=== PATIENT | female | born 1975 | race Caucasian/White ===

== ENCOUNTER 2021-09-23 15:36 | Outpatient (CLI) | payer BC, SELFPAY ==
--- NOTE | 2021-09-23 15:41 | BI_ITS ---
MAMMOGRAPHY - BILATERAL SCREENING REASON FOR EXAM: Female, 46 years old. Routine annual screening examination. PERTINENT HISTORY: Non-contributory. TECHNIQUE: Digital bilateral breast tiarra (3D mammographic acquisition) in the CC and MLO projections. 2-D mediolateral oblique (MLO) and craniocaudad (CC) views of both breasts were obtained. CAD: Full Field Digital Mammography with Computer Added Detection was performed. COMPARISON: None. Baseline examination. FINDINGS: Breast Composition: The breasts are heterogeneously dense, which may obscure small masses. There is a 6.4 mm x 6 mm well-defined nodule in the upper lateral aspect of the right breast. This most likely represents a small lymph node. Correlation with ultrasound is recommended. No other significant abnormalities are identified. BI/SCRN MAMM (CAD)W/TIARRA BILAT IMPRESSION: 6.4 mm x 6 mm well-defined nodule in the upper lateral aspect of the right breast. Correlation with ultrasound is recommended. ASSESSMENT CATEGORY: BIRADS Category 0: Incomplete. Need additional imaging evaluation. A letter regarding these results will be sent to the patient by the facility within 30 days. Approximately 10% of breast cancers are not detected by mammography. A normal mammogram should not delay biopsy of a clinically suspicious abnormality. [id number] Electronically Signed: Paul Colin MD at 8:30 EST ,
== END 2021-09-23 23:59 | disposition home or self-care (01) ==
LOC: OPBI 15:39
PROVIDERS: PCP Registered Nurse; Visit Provider Registered Nurse
DX: Z12.31 Encounter for screening mammogram for malignant neoplasm of breast (principal)
CPT/HCPCS: 77063; 77067

== ENCOUNTER 2021-09-26 13:58 | Outpatient (CLI) | payer BC, SELFPAY ==
--- NOTE | 2021-09-26 14:04 | US_ITS ---
History: Breast nodule Right breast ultrasound: Findings: 6 and 4 mm cysts are noted at the 10 o'clock position of the right breast. No evidence of a solid mass. IMPRESSION: 6 and 4 mm right breast cysts. at 1523 Reported and signed by: Julio Sheridan MD Electronically Signed: Julio Sheridan MD at 15:21 EST , US/Breast Limited Unilateral
== END 2021-09-26 23:59 | disposition home or self-care (01) ==
PROVIDERS: PCP Registered Nurse; Visit Provider Registered Nurse
DX: N60.01 Solitary cyst of right breast (principal)
CPT/HCPCS: 76642

== ENCOUNTER 2022-12-08 08:00 | Day surgery (SDC) | payer BC, SELFPAY ==
--- NOTE | 2022-12-08 | COLBX_PTH ---
PATIENT: LUCAS BRYANT LOC: EN U#:[id number] AGE/SX: 47/F ROOM: RE12/08/[address]: Dr. Yvonne Lebron MD : 1975 BED: DIS: 12/08/2022 SPEC #: [id number] RECD: 12/08/22 11:16 STATUS: SHIMA REQ #: [id number] CANDIE: 12/08/22 00:[address]: Yvonne Lebron DEPT: SURGICAL PATHOLOGY RECD BY: Jabier Randolph ENTERED: 12/08/22 11:16 SP TYPE: COLON BX OTHR DR: Dr. Eric Barry MD Tissues: A - Ascending colon B - Sigmoid colon biopsy C - Rectum, NOS Procedures: Surgery Specimen Level IV HEADER OPERATION: Colonoscopy ? open access (MAC) with polypectomy and biopsies PRE-OP DIAGNOSIS: Screening TISSUE SUBMITTED: A ? Ascending colon polyp, B ? Sigmoid polyp polypectomy and biopsy x3, C ? Rectum polyp x3 MICROSCOPIC DIAGNOSIS A. Ascending colon polyp, biopsy: Fragments of hyperplastic polyp. B. Sigmoid polyp, polypectomy and biopsy: Fragments of hyperplastic polyp. C. Rectum polyp, biopsy: Fragments of hyperplastic polyp. YAQUELIN:chrissie 12/09/2022 MICROSCOPIC DESCRIPTION Slides are reviewed. GROSS DESCRIPTION A - Received in fixative is one container labeled with the patient's name and designated ascending colon polyp. The specimen consists of multiple irregular fragments of light roy soft tissue that in aggregate measure 1.2 x 0.3 x 0.1 cm. The specimen is totally submitted in one cassette. B - Received in fixative is one container labeled with the patient's name and designated sigmoid polypectomy and biopsy. The specimen consists of multiple irregular fragments of light roy soft tissue that in aggregate measure 1.0 x 0.5 x 0.2 cm. The specimen is totally submitted in one cassette. C - Received in fixative is one container labeled with the patient's name and designated rectal polyp. The specimen consists of multiple irregular fragments of light roy soft tissue that in aggregate measure 1.5 x 0.6 x 0.1 cm. The specimen is totally submitted in one cassette. / YAQUELIN:chrissie 12/08/2022 TC:1 CPT: 24524 x3
[2022-12-08 08:20] VITALS: BP 100/60; PULSE 59; RESP 16; TEMP 36.4; O2SAT 98; BMI 28.3
--- NOTE | 2022-12-08 08:27 | H&P.OPEN ---
[facility] - General General Date of Admission: 12/08/22 HPI Narrative LUCAS BRYANT, is a 47 F who presents for screening colonoscopy. Patient's mom was just diagnosed with colon cancer at age 70. Patient's maternal grandmother also had colon cancer multiple times. Patient never had colonoscopy. Patient denies any chronic abdominal pain/nausea/vomiting/reflux. Patient does have issues with constipation going go maybe once a week to every 1 to 2 weeks. [facility] Medical History (Updated 12/08/22 @ 08:[address] Yvonne Lebron MD) Alcohol use Back pain Cardiology follow-up encounter Gastric reflux History of edema History of irregular heartbeat History of stress test Injury of back Post-menopausal Restless legs Smoker Syncope Wears dentures Wears glasses Home Medications NK 10/31/22 [History Last Taken Unknown] Allergy/AdvReac Type Severity Reaction Status Date / Time No Known Allergies Allergy Verified 12/08/22 08:18 Family History (Updated 10/31/22 @ 09:26 by Annette Schuster) Mother Colon cancer Hypertension Grandmother Colon cancer Surgical History (Updated 10/31/22 @ 09:25 by Annette Schuster) History of appendectomy History of tubal ligation Hx of cholecystectomy Hx of hysterectomy Social History (Updated 10/31/22 @ 09:27 by Annette Schuster) household members: spouse and children current occupational status: employed Smoking Status: Current every day smoker tobacco type: cigarettes Past Medical/Surgical History Planned Operation Planned Operative Procedure/s: COLONOSCOPY-OA Previous Hospitalizations/Surgeries HX Hospitalizations: No Any Problems With Anesthesia: Yes (DOESN'T TAKE MUCH FOR HER) You/Your Family Experience Fever (Hyperthermia) With Anes: No Cholinesterase deficiency: No Cardiovascular Hx of Irregular Heartbeat and/or Afib: No Hx Heart Attack: No Hx Congestive Heart Failure: No Hx Hypertension: No Hx Pacemaker: No Respiratory Hx Chronic Obstructive Pulmonary Disease (COPD): No Hx Asthma: No Hx Emphysema: No Hx Sleep Apnea: No Hx Respiratory Tract Infection/Cold (presently): No Do You Snore Loudly (louder than talking or can be heard): No Do You Often Feel Tired/ Fatigued/ Sleepy Dring Daytime?: No Has Anyone Observed You Stop Breathing During Sleep?: No Result (for STOP score): Negative Smoking Status: Current every day smoker Gastrointestinal Hx Gastroesophageal Reflux: No Hx Ulcer: No Special diet followed at home: No Neurological Hx Seizures: No Hx Head/Neck Injury: No Hx Headaches: Yes Hx Back Injury/Pain: No Does patient have nerve stimulator: No Allergies No Known Allergies Allergy (Verified 12/08/22 08:18) Discharge Is Pt Admitted From a [facility], or a Senior Care: No After D/C, Where Do you Plan to Go: Return Home Physical Exam Const alert, oriented x3 and no apparent distress HEENT normocephalic and head/scalp atraumatic Resp normal respiratory effort Cardio regular rate GI soft to palpation and non-tender; Negative for non-distended Palpation: Negative for guarding Extremity no clubbing, cyanosis or edema Neuro CN's II-XII intact bilaterally Psych mental status grossly normal Assessment & Plan Assessment/Plan (1) Encounter for screening for malignant neoplasm of colon: Surgery Risks - Colonoscopy I discussed with the patient the risks of the procedure: Yes Risks Include but are not Limited To: Risks include but are not limited to: Bleeding, perforation requiring further surgery, inability to complete colonoscopy requiring barium enema.
[2022-12-08] MEDS: Lactated Ringers 1,000 ML 15 ML IV (08:34)
[2022-12-08 10:15] VITALS: BP 100/60; BP 92/59; PULSE 70; RESP 16; TEMP 36.1; O2SAT 98
[2022-12-08 10:20] VITALS: BP 100/60; BP 88/58; PULSE 69; RESP 16; O2SAT 97
--- NOTE | 2022-12-08 10:22 | OP.COLON_ITS ---
Patient Name: Yusra Mcgill Procedure Date: 12/08/2022 9:23 AM Date of : 1975 Age: 47 Procedure: Colonoscopy Indications: Screening for colorectal malignant neoplasm, Screening patient at increased risk: Family history of 1st-degree relative with colorectal cancer at age 60 years (or older) Providers: Yvonne Lebron MD Medicines: Monitored Anesthesia Care Patient Profile: This is a 47 year old female. Last Colonoscopy: none. The patient's first colonoscopy is today. Complications: No immediate complications. Procedure: Pre-Anesthesia Assessment: - Prior to the procedure, a History and Physical was performed, and patient medications and allergies were reviewed. The patient's tolerance of previous anesthesia was also reviewed. The risks and benefits of the procedure and the sedation options and risks were discussed with the patient. All questions were answered, and informed consent was obtained. Prior Anticoagulants: The patient has taken no previous anticoagulant or antiplatelet agents. ASA Grade Assessment: Per anesthesia. After reviewing the risks and benefits, the patient was deemed in satisfactory condition to undergo the procedure. After I obtained informed consent, the scope was passed under direct vision. Throughout the procedure, the patient's blood pressure, pulse, and oxygen saturations were monitored continuously. The colonoscope was introduced through the anus and advanced to the cecum, identified by the ileocecal valve. The colonoscopy was performed without difficulty. The patient tolerated the procedure well. The quality of the bowel preparation was good. Scope In: 9:29:54 AM Scope Withdrawal Time 0 hours 31 minutes 17 seconds Scope Out: 10:09:30 AM Total Procedure Duration Time 0 hours 39 minutes 36 seconds Findings: The perianal and digital rectal examinations were normal. Six sessile polyps were found in the rectum and sigmoid colon. The polyps were less than 5 mm in size. These polyps were removed with a cold biopsy forceps. Resection and retrieval were complete. A less than 5 mm polyp was found in the ascending colon. The polyp was sessile. The polyp was removed with a hot snare. Resection and retrieval were complete. The exam was otherwise without abnormality on direct and retroflexion views. Impression: - Six less than 5 mm polyps in the rectum and in the sigmoid colon, removed with a cold biopsy forceps. Resected and retrieved. - One less than 5 mm polyp in the ascending colon, removed with a hot snare. Resected and retrieved. - The examination was otherwise normal on direct and retroflexion views. Recommendation: - Discharge patient to home. - Resume previous diet. - Continue present medications. - Await pathology results. - Repeat colonoscopy in 3 - 5 years for surveillance based on pathology results. Procedure Code(s): --- Professional --- 30113, PT, Colonoscopy, flexible; with removal of tumor(s), polyp(s), or other lesion(s) by snare technique 24789, 59, Colonoscopy, flexible; with biopsy, single or multiple Diagnosis Code(s): --- Professional --- Z12.11, Encounter for screening for malignant neoplasm of colon Z80.0, Family history of malignant neoplasm of digestive organs K62.1, Rectal polyp D12.5, Benign neoplasm of sigmoid colon D12.2, Benign neoplasm of ascending colon CPT copyright 2017 [employer]. All rights reserved. The codes documented in this report are preliminary and upon president trust company review may be revised to meet current compliance requirements. MD Yvonne Villarreal MD 12/08/2022 10:22:09 AM This report has been signed electronically. Number of Addenda: 0 Note Initiated On: 12/08/2022 9:23 AM
--- NOTE | 2022-12-08 10:23 | OP.CCLET_ITS ---
12/08/2022 Eric Barry [address] [place] [address] Re : Colonoscopy procedure for Yusra Mcgill Dear Dr. Barry This procedure was performed on Thursday, December 08, 2022. My impressions and recommendations are as follows: Impressions : - Six less than 5 mm polyps in the rectum and in the sigmoid colon, removed with a cold biopsy forceps. Resected and retrieved. - One less than 5 mm polyp in the ascending colon, removed with a hot snare. Resected and retrieved. - The examination was otherwise normal on direct and retroflexion views. Recommendations : - Discharge patient to home. - Resume previous diet. - Continue present medications. - Await pathology results. - Repeat colonoscopy in 3 - 5 years for surveillance based on pathology results. My findings are described in the full procedure note, which is enclosed. If I can be of further assistance, please feel free to contact me at Doctor phone number(s): , Work: . Sincerely, MD Yvonne Villarreal MD 12/08/2022 10:22:09 AM This report has been signed electronically.
[2022-12-08 10:25] VITALS: BP 100/60; BP 90/58; PULSE 79; RESP 16; O2SAT 96
[2022-12-08 10:30] VITALS: BP 100/60; BP 88/62; PULSE 62; RESP 16; TEMP 36; O2SAT 97
[2022-12-08 10:54] VITALS: BP 100/60
== END 2022-12-08 11:05 | disposition home or self-care (01) ==
LOC: EN 08:01 → AC 08:04
PROVIDERS: PCP Family Medicine; Referring Provider Family Medicine; Visit Provider Surgery
PROC: 0DJD8ZZ Inspection of Lower Intestinal Tract, Via Natural or Artificial Opening Endoscopic (ICD-10-PCS; CPT 45378; principal; 2022-12-08 09:10)
DX: Z12.11 Encounter for screening for malignant neoplasm of colon (principal); F17.210 Nicotine dependence, cigarettes, uncomplicated; K62.1 Rectal polyp; Z80.0 Family history of malignant neoplasm of digestive organs; D12.5 Benign neoplasm of sigmoid colon; D12.2 Benign neoplasm of ascending colon
CPT/HCPCS: 45380; 45385; 88305; J7120; J2405

== ENCOUNTER → 2023-07-30 | Outpatient (CLI) | payer BC, SELFPAY ==
--- NOTE | 2023-07-30 14:55 | CDU_ITS ---
Reason For Study: Rt Sided Numbness / Near Syncope Rt. Velocities/BP Lt. Velocities/BP Prox CCA 102.3/23.7 cm/sec. Prox CCA 113.3/23.3 cm/sec. Mid CCA 78.1/16.7 cm/sec. Mid CCA 86.7/17.9 cm/sec. Dist CCA 74.4/24.1 cm/sec. Dist CCA 68.3/22.8 cm/sec. Prox ICA 97.7/30.2 cm/sec. Prox ICA 89.1/26.5 cm/sec. Mid ICA 87.9/36.3 cm/sec. Mid ICA 76.9/32.7 cm/sec. Dist ICA 78.1/32.7 cm/sec. Dist ICA 79.3/33.9 cm/sec. Rt. ICA/CCA = 1.3. Lt. ICA/CCA = 1.0. Prox ECA 115.8/21.2 cm/sec. Prox ECA 96.5/16.7 cm/sec. Rt. Vert. 51.1/15.5 cm/sec. Lt. Vert. 51.1/13.0 cm/sec. Right Extracranial There is intimal thickening but no significant atherosclerotic plaque noted in the right common carotid artery. There is intimal thickening but no significant atherosclerotic plaque noted in the right internal carotid artery. There is intimal thickening but no significant atherosclerotic plaque noted in the right external carotid artery. Antegrade flow is noted in the right vertebral artery. There is homogeneous, smooth atherosclerotic plaque noted in the right bulb. Left Extracranial There is intimal thickening but no significant atherosclerotic plaque noted in the left common carotid artery. There is intimal thickening but no significant atherosclerotic plaque noted in the left internal carotid artery. There is intimal thickening but no significant atherosclerotic plaque noted in the left external carotid artery. Antegrade flow is noted in the left vertebral artery. There is homogeneous, smooth atherosclerotic plaque noted in the left bulb. Procedure Carotid Duplex 05356. This is a Carotid Duplex examination using B-mode, color flow and specral Doppler. The exam was diagnostic. Exam performed in department. VL/Carotid Duplex Ultrasound Interpretation Summary No significant atherosclerotic plaque or stenosis noted in the internal carotid arteries bilaterally. Flow within the vertebral arteries is antegrade bilaterally. Minim al, smooth, homogeneous atherosclerotic plaque is noted in the carotid bulbs bilaterally. Ordering Physician: Eric Barry Referring Physician: Eric Barry Performed By: Yoshi Bates RVT
[2023-07-30 15:56] LABS: Absolute Lymphocyte Count 2.93 X10^3/uL (0.83-4.51); Absolute Neutrophil Count 3.4 X10^3/uL (2.0-7.7); Basophil# 0.04 X10^3/uL; Basophil% 0.6 % (0-1); Eosinophil# 0.14 X10^3/uL; Eosinophils% 1.9 % (0-5); Hemoglobin 11.9 g/dL (12.0-15.0); Lymphocyte # 2.93 X10^3/ul (0.83-4.51); Lymphocyte % 40.8 % (19-41); Mean Corp Hgb Conc 32.2 g/dL (32-36); Mean Corpuscular Hgb 29.3 pg (27.0-32.0); Mean Corpuscular Volume 91.1 fL (81-99); Mean Platelet Vol. 9.6 fl (6.2-12.0); Monocyte# 0.67 X10^3/uL; Monocyte% 9.3 % (0-10); NRBC Flagged by Analyzer 0 % (0-5); Neutrophil # 3.38 X10^3/uL (2.7-7.7); Neutrophil % 47.1 % (47-70); Platelet Count 298 K/mm3 (150-450); RBC Distribution Width CV 12.5 % (11.6-14.6); RBC Distribution Width SD 41.3 fl (35.1-43.9); Red Blood Count 4.06 M/mm3 (4.2-5.4); White Blood Count 7.2 K/mm3 (4.4-11.0)
[2023-07-30 17:03] LABS: AST(SGOT) 22 U/L (15-37); Alanine Aminotransfer ALT/SGPT 37 U/L (13-56); Albumin, Serum 3.5 g/dL (3.2-5.0); Alkaline Phosphatase 79 U/L (45-117); Anion Gap 4 (5-15); BUN 11 mg/dL (7-18); BUN/Creat Ratio 13.1 RATIO (10-20); Calcium,Total 8.6 mg/dL (8.5-10.1); Chloride 105 mmol/L (98-107); Cholesterol 163 mg/dL (200); Creatinine, Serum 0.84 mg/dL (0.55-1.02); EST Glomerular Filtration Rate 77 mL/min (>60); Est Glom Filt Rate - Afr Amer 93 mL/min (>60); Globulin 3.4 g/dL (2.2-4.2); Glucose 94 mg/dL (74-106); High Density Lipoprotein 44 mg/dL; Potassium 3.8 mmol/L (3.5-5.1); Protein, Total 6.9 g/dL (6.4-8.2); Sodium Level 140 mmol/L (136-145); Thyroid Stim Hormone (TSH) 0.75 uIU/mL (0.358-3.74); Triglycerides 186 mg/dL; Very Low Density Lipoprotein 37 mg/dL (5-40)
== END | disposition home or self-care (01) ==
LOC: CVS 14:53
PROVIDERS: PCP Family Medicine; Referring Provider Family Medicine; Visit Provider Family Medicine
DX: Z00.00 Encounter for general adult medical examination without abnormal findings (principal); R20.0 Anesthesia of skin; Z13.220 Encounter for screening for lipoid disorders; R55 Syncope and collapse; N95.1 Menopausal and female climacteric states; F17.200 Nicotine dependence, unspecified, uncomplicated
CPT/HCPCS: 36415; 80053; 80061; 84443; 85025; 93880

== ENCOUNTER → 2023-08-18 | Outpatient (CLI) | payer BC, SELFPAY ==
--- NOTE | 2023-08-18 12:29 | RAD_ITS ---
STUDY: X-RAY - RIGHT ELBOW REASON FOR EXAM: Female, 48 years old. right elbow, acute pain and inability to extend - ? bone chip TECHNIQUE: 3 view(s) of the elbow. COMPARISON: None. FINDINGS: Normal visualized humerus, radius and ulna. Normal radiocapitellar and ulnotrochlear articulations. The soft tissue structures are unremarkable. There is no demonstrated fracture. RAD/Elbow min 3 Views IMPRESSION: Normal x-ray examination of the elbow. Electronically Signed: Garth Freed MD at 17:40 EST ,
[2023-08-18 16:06] LABS: Basophil# 0.03 X10^3/uL; Basophil% 0.4 % (0-1); Eosinophil# 0.17 X10^3/uL; Eosinophils% 2.2 % (0-5); Hematocrit 37.6 % (37-47); Hemoglobin 12.2 g/dL (12.0-15.0); Lymphocyte % 37.3 % (19-41); Mean Corp Hgb Conc 32.4 g/dL (32-36); Mean Corpuscular Hgb 29.3 pg (27.0-32.0); Mean Corpuscular Volume 90.2 fL (81-99); Mean Platelet Vol. 10.1 fl (6.2-12.0); Monocyte# 0.61 X10^3/uL; Monocyte% 7.9 % (0-10); NRBC Flagged by Analyzer 0 % (0-5); Neutrophil # 4.03 X10^3/uL (2.7-7.7); Neutrophil % 51.8 % (47-70); Platelet Count 335 K/mm3 (150-450); RBC Distribution Width CV 12.3 % (11.6-14.6); RBC Distribution Width SD 40.2 fl (35.1-43.9); Red Blood Count 4.17 M/mm3 (4.2-5.4); White Blood Count 7.8 K/mm3 (4.4-11.0)
[2023-08-18 17:01] LABS: Erythrocyte Sedimentation Rate 5 mm/hr (0-30)
[2023-08-18 17:07] LABS: ALB/GLOB Ratio 1.1 RATIO (0.9-2.4); AST(SGOT) 23 U/L (15-37); Alanine Aminotransfer ALT/SGPT 36 U/L (13-56); Albumin, Serum 3.8 g/dL (3.2-5.0); Alkaline Phosphatase 95 U/L (45-117); Anion Gap 5 (5-15); BUN 16 mg/dL (7-18); BUN/Creat Ratio 20.3 RATIO (10-20); Calcium,Total 9.2 mg/dL (8.5-10.1); Chloride 106 mmol/L (98-107); Creatinine, Serum 0.79 mg/dL (0.55-1.02); EST Glomerular Filtration Rate 82 mL/min (>60); Est Glom Filt Rate - Afr Amer 99 mL/min (>60); Globulin 3.5 g/dL (2.2-4.2); Glucose 91 mg/dL (74-106); Potassium 3.9 mmol/L (3.5-5.1); Protein, Total 7.3 g/dL (6.4-8.2); Sodium Level 138 mmol/L (136-145); Thyroid Stim Hormone (TSH) 0.87 uIU/mL (0.358-3.74)
[2023-08-20 11:09] LABS: ANTINUCLEAR ANTIBODIES DIRECT Negative (Negative)
== END | disposition home or self-care (01) ==
PROVIDERS: PCP Family Medicine; Referring Provider Family Medicine; Visit Provider Family Medicine
DX: M25.521 Pain in right elbow (principal)
CPT/HCPCS: 36415; 73080; 80053; 84443; 85025; 85652; 86038; 86140

== ENCOUNTER → 2024-11-17 | Outpatient (CLI) | payer BC, SELFPAY ==
--- NOTE | 2024-11-17 16:02 | BI_ITS ---
EXAM: SCRN MAMM (CAD)W/TIARRA BILAT DATE: 11/17/2024 CLINICAL HISTORY: F, Age 49 y/o , EVERY OTHER YEAR. SCREENING No family history. BREAST CANCER RISK ASSESSMENT: Not assessed. TECHNIQUE: Bilateral screening digital breast tomosynthesis with 2D and 3D images. Computer aided detection. COMPARISON: Prior exam(s) dated September 15, 2021.. FINDINGS: TISSUE DENSITY: The breast tissue is heterogenously dense, which may obscure small masses. Bilateral Breast Mammographic Findings: No significant masses, calcifications or other abnormalities are identified. Stable 6 mm well-defined nodule with a fatty hilum in the upper lateral aspect of the right breast suggestive of a small lymph node. BI/SCRN MAMM (CAD)W/TIARRA BILAT IMPRESSION: OVERALL FINAL ASSESSMENT: BIRADS 2 BENIGN FINDING RECOMMENDATION: Routine annual follow-up in 1 Year A letter with findings and recommendations will be mailed to the patient. Reading Location: [place] [id number]
== END | disposition home or self-care (01) ==
LOC: OPBI 16:01
PROVIDERS: PCP Family Medicine; Referring Provider Family Medicine; Visit Provider Family Medicine
DX: Z12.31 Encounter for screening mammogram for malignant neoplasm of breast (principal)
CPT/HCPCS: 77063; 77067

== ENCOUNTER → 2025-02-13 | Outpatient (CLI) | payer BC, SELFPAY ==
[2025-02-13 10:42] LABS: Hematocrit 39.6 % (37-47); Hemoglobin 13.1 g/dL (12.0-15.0); Immature Granulocytes Count 0.010 X10^3/uL (0.0-0.0); Mean Corp Hgb Conc 33.1 g/dL (32-36); Mean Corpuscular Volume 85.2 fL (81-99); Mean Platelet Vol. 10.3 fl (6.2-12.0); NRBC Flagged by Analyzer 0 % (0-5); Platelet Count 327 K/mm3 (150-450); RBC Distribution Width CV 12.9 % (11.6-14.6); RBC Distribution Width SD 39.7 fl (35.1-43.9); Red Blood Count 4.65 M/mm3 (4.2-5.4); White Blood Count 5.1 K/mm3 (4.4-11.0)
[2025-02-13 12:01] LABS: AST(SGOT) 24 U/L (<=31); Alanine Aminotransfer ALT/SGPT 31 U/L (<=34); Albumin, Serum 4.1 g/dL (3.5-5.0); Alkaline Phosphatase 103 U/L (35-104); Anion Gap 12 (5-15); BUN 13 mg/dL (4-19); BUN/Creat Ratio 15.9 RATIO (10-20); Calcium,Total 9.4 mg/dL (7.6-11.0); Carbon Dioxide 21.5 mmol/L (21.0-32.0); Chloride 105 mmol/L (98-108); Globulin 2.9 g/dL (2.2-4.2); Glucose 130 mg/dL (70-99); Potassium 4.4 mmol/L (3.3-5.1)
== END | disposition home or self-care (01) ==
LOC: MTLAB 08:56
PROVIDERS: PCP Family Medicine; Referring Provider Family Medicine; Visit Provider Family Medicine
DX: N95.1 Menopausal and female climacteric states (principal); R63.5 Abnormal weight gain; F17.201 Nicotine dependence, unspecified, in remission
CPT/HCPCS: 36415; 80053; 82670; 84443; 85025